=== PATIENT | female | born 1990 | race American Indian/Alaskan Native ===

== ENCOUNTER 2017-09-04 17:21 | Emergency (ER) | payer BC ==
[2017-09-04 17:21] VITALS: BMI 25.9
[2017-09-04 17:48] VITALS: RESP 18
[2017-09-04 19:25] VITALS: BP 91/62; PULSE 79; TEMP 98.2; O2SAT 98
--- NOTE | 2017-09-04 19:29 | C.PDOC ---
History Of Present Illness 26 y/o female, with history of asthma, presents to the ER complaining of intermittent SOB for the past 1 week. Patient reports that she ran out of Albuterol and Advair. Patient states that she was using someone's pump [employer] and she feels better. Currently, she does not have SOB. Time Seen by Provider: 09/04/17 18:37 Chief Complaint (Nursing): Cough, Cold, Congestion History Per: Patient History/Exam Limitations: no limitations Onset/Duration Of Symptoms: Days Current Symptoms Are (Timing): Gone Severity: Moderate Past Medical History Reviewed: Historical Data, Nursing Documentation, Vital Signs Vital Signs: Last Vital Signs Temp 98.2 F 09/04/17 19:23 Pulse 79 09/04/17 19:23 Resp 18 09/04/17 19:23 BP 91/62 L 09/04/17 19:23 Pulse Ox 98 09/04/17 21:15 - Medical History PMH: Asthma Surgical History: No Surg Hx - [facility] Procedures EPISIOTOMY (07/27/13) Family History: States: No Known Family Hx - Social History Hx Alcohol Use: No Hx Substance Use: No Review Of Systems Except As Marked, All Systems Reviewed And Found Negative. Constitutional: Negative for: Fever, Chills Respiratory: Positive for: Shortness of Breath (intermittent SOB) Physical Exam - Physical Exam Appears: Non-toxic, No Acute Distress Skin: Normal Color, Warm Head: Atraumatic, Normacephalic Eye(s): bilateral: Normal Inspection Nose: Normal Oral Mucosa: Moist Neck: Supple Chest: Symmetrical Cardiovascular: Rhythm Regular Respiratory: Normal Breath Sounds, No Accessory Muscle Use, No Rales, No Rhonchi , No Wheezing Extremity: Normal ROM Neurological/Psych: Oriented x3, Normal Speech, Normal Motor, Normal Sensation ED Course And Treatment O2 Sat by Pulse Oximetry: 98 (RA) Pulse Ox Interpretation: Normal Progress Note: Patient given prescriptions for asthma medications and discharged home. Disposition - Disposition Disposition: HOME/ ROUTINE Disposition Time: 19:28 Condition: STABLE Additional Instructions: Follow up with PMD within 1-2 days. Return to ED if feel worse. Prescriptions: Fluticasone/Salmeterol 100/50 [Advair Diskus 100/50] 1 puff IH Q12 #1 inh Albuterol HFA [Ventolin HFA 90 mcg/actuation (8 g)] 1 puff IH .Q4-6H #1 inhaler Instructions: Asthma (ED) Forms: [facility] ([place]inian) - Clinical Impression Clinical Impression: Asthma - PA / GARAGE HAND / Resident Statement MD/DO has reviewed & agrees with the documentation as recorded. - Scribe Statement The provider has reviewed the documentation as recorded by the Antoninoibe Jaci Andrade Provider Attestation All medical record entries made by the Scribe were at my direction and personally dictated by me. I have reviewed the chart and agree that the record accurately reflects my personal performance of the history, physical exam, medical decision making, and the department course for this patient. I have also personally directed, reviewed, and agree with the discharge instructions and disposition.
== END 2017-09-04 19:43 | disposition home or self-care (01) ==
LOC: C.ER 17:21
DX: J45.909 Unspecified asthma, uncomplicated (principal)